=== PATIENT | female | born 1985 | race Two or more races ===

== ENCOUNTER 2020-03-07 15:06 | Outpatient (CLI) | payer BC, MEDICARE ==
[2020-03-07] MEDS ORDERED: RINGERS SOLUTION,LACTATED 1,000 ML IV PRN (15:37)
[2020-03-07] MEDS ORDERED: ACETAMINOPHEN 1,000 MG/100 ML RTUPB IV ONE (15:58)
[2020-03-07] MEDS ORDERED: ACETAMINOPHEN 1,000 MG/100 ML RTUPB IV SCH (16:00)
[2020-03-07 16:09] LABS: ABSOLUTE MONOCYTES (AUTO) 0.6 10^3/uL (0.1-1.4); ABSOLUTE NEUT (AUTO) 6.3 10^3/uL (1.7-8.2); BASOPHILS % (AUTO) 0.4 % (0-2); EOSINOPHILS % (AUTO) 0.5 % (0-6); HEMATOCRIT 26.3 % (36.0-47.0); HEMOGLOBIN 8.3 g/dL (12.0-15.5); LYMPHOCYTES % (AUTO) 22.5 % (13-45); MEAN CORPUSCULAR HEMOGLOBIN 22.1 pg (27.0-33.4); MEAN CORPUSCULAR HGB CONC 31.6 g/dL (32.0-36.0); MEAN CORPUSCULAR VOLUME 70 fl (80-97); MONOCYTES % (AUTO) 6.5 % (3-13); PLATELET COUNT 333 10^3/uL (150-450); RED BLOOD COUNT 3.77 10^6/uL (3.72-5.28); RED CELL DISTRIBUTION WIDTH 16.9 % (11.5-14.0); SEGMENTED NEUTROPHILS % (AUTO) 70.1 % (42-78); TOTAL CELLS COUNTED % (AUTO) 100 %
--- NOTE | 2020-03-07 16:13 | Non Stress Test Report ---
Non Stress Test Datetime Report Generated by CPN: 03/07/2020 16:12 DEMOGRAPHIC EGA NST: 32.6 VITAL SIGNS Temperature - NST: 97.3 Pulse - NST: 111 RESP - NST: 16 NBPSYS NST: 134 NBPDIA NST: 83 MONITORING Monitor Explained: Monitor Explained; Test Explained; Patient Verbalized Understanding Time on Monitor: 03/07/2020 15:21 Time off Monitor: 03/07/2020 15:53 NST Duration: 32 NST INTERVENTIONS NST Interventions: IV Fluids Physician Notified NST: A Hidalgo CNM BABY A: [id number] BABY A Movement : Present Contraction Frequency : none FHR Baseline : 130 Accelerations : 15X15 Decelerations : None Variability : Moderate 6-25bpm NST Review: Meets Criteria for Reactive NST NST Review and Verified By : Indu Camp RNC NST Results: Reactive NST REPORT Report Trigger: Send Report
[2020-03-07 16:27] LABS: ALBUMIN 3.2 g/dL (3.5-5.0); ALKALINE PHOSPHATASE 120 U/L (38-126); ANION GAP 6 (5-19); ASPARTATE AMINO TRANSFERASE 14 U/L (14-36); BILIRUBIN,DIRECT 0.2 mg/dL (0.0-0.4); BILIRUBIN,TOTAL 0.5 mg/dL (0.2-1.3); BLOOD UREA NITROGEN 3 mg/dL (7-20); CARBON DIOXIDE 23 mmol/L (22-30); CHLORIDE 105 mmol/L (98-107); GLUCOSE 115 mg/dL (75-110); POTASSIUM 3.4 mmol/L (3.6-5.0); TOTAL PROTEIN 6.2 g/dL (6.3-8.2); URIC ACID 3.5 mg/dL (2.5-6.2)
[2020-03-07 16:28] LABS: APPEARANCE,URINE SLIGHTLY-CLOUDY; BILIRUBIN,URINE NEGATIVE (NEGATIVE); COLOR,URINE YELLOW; GLUCOSE, URINE NEGATIVE (NEGATIVE); KETONES,URINE 20 mg/dL (NEGATIVE); LEUKOCYTE ESTERASE,URINE NEGATIVE (NEGATIVE); NITRITE,URINE NEGATIVE (NEGATIVE); PROTEIN,URINE 30 mg/dL (NEGATIVE); URINE SPECIFIC GRAVITY 1.018
[2020-03-07 16:42] LABS: UR PRO/CREAT RATIO RESULT 0.1 mg/mg (0.0-0.2); URINE CREATININE 157.6 mg/dL (16-327); URINE PROTEIN 20.8 mg/dL (<12)
[2020-03-07 16:53] LABS: URINE AMPHETAMINES SCREEN NEGATIVE; URINE BARBITURATES SCREEN NEGATIVE; URINE BENZODIAZEPINES SCREEN NEGATIVE; URINE COCAINE SCREEN NEGATIVE; URINE MARIJUANA (THC) SCREEN NEGATIVE; URINE METHADONE SCREEN NEGATIVE; URINE PHENCYCLIDINE SCREEN NEGATIVE
== END 2020-03-07 17:44 | disposition home or self-care (01) ==
LOC: LC 15:06
PROVIDERS: ATTEND Obstetrics & Gynecology Gynecology
DX: O10.913 Unspecified pre-existing hypertension complicating pregnancy, third trimester (principal); Z3A.32 32 weeks gestation of pregnancy
CPT/HCPCS: 59025; 36415; 83615; 84156; 84550; 82570; 85025; 80053; 81001; 80307; J0131

== ENCOUNTER 2020-03-17 00:12 | Emergency (ER) | payer BC ==
--- NOTE | 2020-03-17 00:31 | ER Document Report ---
ED Medical Screen (RME) - General Chief Complaint: Chest Pain Stated Complaint: CHEST PAIN Time Seen by Provider: 03/17/20 00:23 Primary Care Provider: DAVID MATHEWS MD [Primary Care Provider] - Follow up as needed Mode of Arrival: Ambulatory Information source: Patient - HPI Patient complains to provider of: DARIO LEE Notes: 03/17/20 00:30 Patient here with complaints of chest pain and shortness of breath. The patient is 34 weeks . Last time she was at the hospital she was told she was anemic with a hemoglobin of 8. Apparently her OB said her hemoglobin had dropped more and she is due to have an iron transfusion. States that today started having some chest pain or shortness of breath. Shortness of breath is exertional. She denies any recent long trips or surgeries or any significant leg swelling. No history of DVT or PE. Exam: No distress, nontoxic appearing. Lungs clear and equal throughout. Mild tachycardia. No significant peripheral edema. An initial examination was made on the patient as part of the triage process, and it was determined a more comprehensive evaluation was necessary. Initial orders were placed and patient was transferred to another provider in the ED who assumed care and finished evaluation and plan. - Related Data Allergies/Adverse Reactions: No Known Allergies Allergy (Unverified 03/07/20 15:16) Home Medications: Omeprazole. Aspirin. Labetalol. Nifedipine Physical Exam - Vital signs Vitals: Temp Pulse Resp BP Pulse Ox 97.6 F 109 H 16 141/90 H 99 03/17/20 00:18 03/17/20 00:18 03/17/20 00:18 03/17/20 00:18 03/17/20 00:18 Course - Vital Signs Vital signs: Temp Pulse Resp BP Pulse Ox 97.6 F 109 H 16 141/90 H 99 03/17/20 00:18 03/17/20 00:18 03/17/20 00:18 03/17/20 00:18 03/17/20 00:18 Doctor's Discharge - Discharge Referrals: DAVID MATHEWS MD [Primary Care Provider] - Follow up as needed
[2020-03-17 01:38] LABS: ABSOLUTE BASOPHILS # (AUTO) 0.2 10^3/uL (0.0-0.2); ABSOLUTE EOSINOPHILS # (AUTO) 0.1 10^3/uL (0.0-0.6); ABSOLUTE LYMPHOCYTES (AUTO) 2.1 10^3/uL (0.5-4.7); ABSOLUTE MONOCYTES (AUTO) 0.8 10^3/uL (0.1-1.4); ABSOLUTE NEUT (AUTO) 8.1 10^3/uL (1.7-8.2); BASOPHILS % (AUTO) 1.5 % (0-2); EOSINOPHILS % (AUTO) 0.4 % (0-6); HEMATOCRIT 28.1 % (36.0-47.0); HEMOGLOBIN 8.8 g/dL (12.0-15.5); LYMPHOCYTES % (AUTO) 18.6 % (13-45); MEAN CORPUSCULAR HEMOGLOBIN 21.8 pg (27.0-33.4); MEAN CORPUSCULAR HGB CONC 31.3 g/dL (32.0-36.0); MEAN CORPUSCULAR VOLUME 70 fl (80-97); MONOCYTES % (AUTO) 7.5 % (3-13); PLATELET COUNT 348 10^3/uL (150-450); RED BLOOD COUNT 4.04 10^6/uL (3.72-5.28); RED CELL DISTRIBUTION WIDTH 17.6 % (11.5-14.0); TOTAL CELLS COUNTED % (AUTO) 100 %; WHITE BLOOD COUNT 11.2 10^3/uL (4.0-10.5)
[2020-03-17 01:56] LABS: ALBUMIN 3.7 g/dL (3.5-5.0); ALKALINE PHOSPHATASE 137 U/L (38-126); ANION GAP 8 (5-19); ASPARTATE AMINO TRANSFERASE 23 U/L (14-36); BILIRUBIN,DIRECT 0.3 mg/dL (0.0-0.4); BILIRUBIN,TOTAL 0.5 mg/dL (0.2-1.3); BLOOD UREA NITROGEN 6 mg/dL (7-20); CALCIUM 9.4 mg/dL (8.4-10.2); CARBON DIOXIDE 22 mmol/L (22-30); CHLORIDE 106 mmol/L (98-107); GLUCOSE 111 mg/dL (75-110); POTASSIUM 3.2 mmol/L (3.6-5.0); TOTAL PROTEIN 7.5 g/dL (6.3-8.2)
[2020-03-17 02:07] LABS: NT PRO BNP 93 pg/mL (<125)
[2020-03-17 02:08] LABS: TROPONIN I < 0.012 ng/mL
--- NOTE | 2020-03-17 02:11 | RADIOLOGY REPORT (SQ) ---
CHEST X-RAY 1 VIEW on 03/17/2020 at 1:47 AM CLINICAL INDICATION: Chest pain, shortness of breath, 34 weeks COMPARISON: None FINDINGS: Heart is borderline in size. The lungs are clear. Hilar and mediastinal contours are within normal limits. Pulmonary vascularity is within normal limits. IMPRESSION: No acute disease.
[2020-03-17] MEDS: NORMAL SALINE 1000 ML 1,000 ML IV PRN ×2 (02:21→03:27)
--- NOTE | 2020-03-17 02:32 | ER Document Report ---
Entered by NADINE OROZCO SCRIBE 03/17/20 0216 Acting as scribe for:VICKIE MCCALLUM IV, MD ED General - General Chief Complaint: Chest Pain Stated Complaint: CHEST PAIN Time Seen by Provider: 03/17/20 00:23 Primary Care Provider: DAVID MATHEWS MD [Primary Care Provider] - Follow up as needed Mode of Arrival: Ambulatory Information source: Patient Notes: This 34-year-old female patient presents to the emergency departme today with complaints of an "uncomfortable sensation" in her chest that she further describes as a heart racing sensation. Patient reports that she is due for an iron infusion on Tuesday as her hemoglobin was 8.3 during outpatient labs last week. She has no abdominal pain or vaginal bleeding. - Related Data Allergies/Adverse Reactions: No Known Allergies Allergy (Unverified 03/07/20 15:16) Home Medications: Omeprazole. Aspirin. Labetalol. Nifedipine Past Medical History - General Information source: Patient - Social History Smoking Status: Never Smoker Cigarette use (# per day): No Frequency of alcohol use: None Drug Abuse: None Lives with: Family Family History: Reviewed & Not Pertinent - Past Medical History Cardiac Medical History: Reports: Hx Hypertension Past Surgical History: Reports: Hx Section - x2 Review of Systems - Review of Systems Constitutional: No symptoms reported EENT: No symptoms reported Cardiovascular: See HPI, Palpitations, Heart racing Respiratory: No symptoms reported Gastrointestinal: No symptoms reported Genitourinary: No symptoms reported Female Genitourinary: No symptoms reported Musculoskeletal: No symptoms reported Skin: No symptoms reported Hematologic/Lymphatic: No symptoms reported Neurological/Psychological: No symptoms reported -: Yes All other systems reviewed and negative Physical Exam - Vital signs Vitals: Temp Pulse Resp BP Pulse Ox 97.6 F 109 H 16 141/90 H 99 03/17/20 00:18 03/17/20 00:18 03/17/20 00:18 03/17/20 00:03/17/20 00:18 - Notes Notes: Physical Exam: General: Alert, appears well. HEENT: Normocephalic. Atraumatic. PERRL. Extraocular movements intact. Orophary nx clear. Neck: Supple. Non-tender. Respiratory: No respiratory distress. Clear and equal breath sounds bilaterally. Cardiovascular: Resting heart rate is around 100, when stood up her heart rate jumps to 145. Abdominal: Gravid female. Non-tender. No distension. Normal Bowel Sounds. Back: No gross abnormalities. Extremities: Moves all four extremities. Upper extremities: Normal inspection. Normal ROM. Lower extremities: Normal inspection. No edema. Normal ROM. Neurological: Normal cognition. AAOx4. Normal speech. Psychological: Normal affect. Normal Mood. Skin: Warm. Dry. Normal color. Course - Re-evaluation Re-evalutation: 03/17/20 02:22 Differential diagnosis: Chest wall pain, symptomatic anemia, dehydration, electrolyte abnormality, discomfort of MDM: Given that the patient's pulse goes from basically 90 up to 140 when she changes from a supine to a standing position, I am inclined to think that the most likely diagnosis is dehydration versus postural orthostatic tachycardia sy ndrome versus simply orthostatic hypotension with reflexive tachycardia. Patient's hemoglobin is slightly improved compared to her last 1; her hemoglobin is 8.6 today versus 8.310 days ago. Patient denies any type of active bleeding. I think the most appropriate treatment would be to give the patient a couple liters of fluid IV and have her follow-up with Dr. Mathews on 03/19/2020 as scheduled for her iron infusion. Results of ED MSE discussed with patient. All questions were answered prior to discharge. Emergency signs and symptoms, reasons to return to the emergency department discussed with patient. - Vital Signs Vital signs: Temp Pulse Resp BP Pulse Ox 97.6 F 109 H 16 141/90 H 99 03/17/20 00:18 03/17/20 00:18 03/17/20 00:18 03/17/20 00:18 03/17/20 00:18 - Laboratory Results Result Diagrams: 03/17/20 01:21 03/17/20 01:21 Laboratory Results Interpreted: 03/17/20 03/17/20 01:21 01:21 WBC 11.2 H Hgb 8.8 L Hct 28.1 L MCV 70 L MCH 21.8 L MCHC 31.3 L RDW 17.6 H Sodium 136.4 L Potassium 3.2 L BUN 6 L Creatinine 0.45 L Glucose 111 H Alkaline Phosphatase 137 H Critical Laboratory Results Reviewed: No Critical Results Attending or Supervising Physician who Reviewed Labs: VICKIE MCCALLUM IV - Radiology Results Critical Radiology Results Reviewed: No Critical Results Attending or Supervising Physician who Reviewed Radiology: VICKIE MCCALLUM IV - EKG Interpretation by Me Additional EKG results interpreted by me: 03/17/20 02:27 EKG obtained on 03/17/2020 at 00 39 hours was interpreted by this MD. Findings: Normal sinus rhythm, rate 97, normal axis, MT interval appears to be within normal limits, P waves preceding QRS complexes, QRS complex appears narrow, QTC is 447, there are no obvious patterns of ST segment elevation, depression or reciprocal changes seen to suggest acute myocardial ischemia or infarction. There is no prior EKG readily available for comparison. Impression: Normal sinus rhythm with nonspecific ST segments. Discharge - Discharge Clinical Impression: Dehydration, Reflex tachycardia Condition: Stable Disposition: HOME, SELF-CARE Additional Instructions: Return to the Emergency Department without delay if any worse. HOME CARE INSTRUCTIONS & INFORMATION: Thank you for choosing us for your medical needs. We hope you're satisfied with the care you received. After you leave, you must properly care for your problem and, at the same time, observe it s progress. Any condition can change. Some illnesses can change rapidly over hours or days. If your condition worsens, return to the Emergency Department or see your physician promptly. ABOUT YOUR X-RAYS AND EKG'S: If you had an EKG or X-rays taken, they have been read by the Emergency Physician. The X-rays and EKG's will also be read by a Radiologist or Personnel Coordinator within 24 hours. If discrepancies are noted, you will be notified by telephone. Please be certain the ED has a correct telephone number & address where you can be reached. Also, realize that some fractures or abnormalities do not show up on initial X-rays. If your symptoms continue, see your physician. ABOUT YOUR LABORATORY TEST: If you had laboratory tests, the results have been reviewed by the Emergency Physician. Some test results (for example cultures) may not be available for several days. You will be contacted if any test result shows you need additional treatment. Please be certain the ED has a correct telephone number and address where you can be reached. ABOUT YOUR MEDICATIONS: You will receive instructions on how to take your medicine on the prescription label you receive. Additional information may be provided by the Pharmacy. If you have questions afterwards, call the ED for clarification or further instructions. Some prescribed medications may cause drowsiness. Do not perform tasks such as driving a car or operating machinery without consulting your Pharmacist. If you feel you need a refill of pain medication, your condition will need re-evaluation. Please do not call for a refill of any medication. ABOUT YOUR SIGNATURE: Signature of this document acknowledges to followin. Understanding that you received emergency treatment and that you may be released before al medical problems are known or treated. Please be certain the ED has a correct phone number & address where you can be reached. 2. Acknowledgement that you will arrange for follow-up care as recommended. 3. Authorization for the Emergency Physician to provide information to your follow-up Physician in order to maximize your care. AT ANY TIME, IF YOUR SYMPTOMS CHANGE SIGNIFICANTLY OR WORSEN OR YOU DEVELOP NEW SYMPTOMS, RETURN TO THE EMERGENCY DEPARTMENT IMMEDIATELY FOR RE-EVALUATION. OUR GOAL IS TO PROVIDE EXCELLENT MEDICAL CARE! WE HOPE THAT WE HAVE MET YOUR EXPECTATIONS DURING YOUR EMERGENCY DEPARTMENT VISIT AND THAT YOU FEEL YOU HAVE RECEIVED EXCELLENT CARE! Dehydration Dehydration can result from vomiting or diarrhea, fever, or decreased intake of fluids. If severe, hospitalization and intravenous fluids may be required. Most cases are treated at home with fluids by mouth. For the next 24 hours, drink lots of clear fluids. In mild cases, this can be soda pop or sports drinks. For more severe dehydration, the doctor may recommend special fluids such as Pedialyte or Lytren. Try to get three liters (3 quarts) of fluid per day. If vomiting occurs, continue to drink the fluids frequently (every 15 to 20 minutes), but in small amounts (one or two ounces). Depending on the type of dehydration, the doctor may prescribe antinausea medicine or potassium replacements. Call the doctor or return for re-examination if you become progressively weak, vomit repeatedly, or have other new symptoms. Referrals: DAVID MATHEWS MD [Primary Care Provider] - 03/19/20 I personally performed the services described in the documentation, reviewed and edited the documentation which was dictated to the scribe in my presence, and it accurately records my words and actions.
[2020-03-17 02:34] LABS: APPEARANCE,URINE SLIGHTLY-CLOUDY; BILIRUBIN,URINE NEGATIVE (NEGATIVE); COLOR,URINE YELLOW; GLUCOSE, URINE NEGATIVE (NEGATIVE); KETONES,URINE NEGATIVE (NEGATIVE); LEUKOCYTE ESTERASE,URINE TRACE (NEGATIVE); NITRITE,URINE NEGATIVE (NEGATIVE); PROTEIN,URINE NEGATIVE (NEGATIVE); URINE SPECIFIC GRAVITY 1.011
[2020-03-17 03:48] VITALS: BP 136/98
--- NOTE | 2020-03-17 07:42 | EKG REPORT ---
SEVERITY:- ABNORMAL ECG - SINUS RHYTHM CONSIDER LEFT VENTRICULAR HYPERTROPHY : Confirmed by: Chau Goff MD 17-Mar-2020 07:41:17
[2020-03-19 16:40] LABS: ABSOLUTE RETICS # 0.092 10^6/uL (0.028-0.122); RETICULOCYTE COUNT (AUTO) 2.35 % (0.66-2.85)
[2020-03-19 17:11] LABS: FERRITIN 7.94 ng/mL (6.2-137.0)
[2020-03-19 18:02] LABS: IRON(TIBC) 147.4 ug/dL (37-170)
== END 2020-03-17 03:47 | disposition home or self-care (01) ==
LOC: ER 00:12
DX: O99.283 Endocrine, nutritional and metabolic diseases complicating pregnancy, third trimester (principal); E86.0 Dehydration; O26.893 Other specified pregnancy related conditions, third trimester; R00.0 Tachycardia, unspecified; R07.9 Chest pain, unspecified; R00.2 Palpitations; O99.013 Anemia complicating pregnancy, third trimester; D64.9 Anemia, unspecified; O16.3 Unspecified maternal hypertension, third trimester; Z79.899 Other long term (current) drug therapy; Z79.82 Long term (current) use of aspirin; Z3A.34 34 weeks gestation of pregnancy
CPT/HCPCS: 93005; 99285; 96360; 86900; 86901; 36415; 86850; 85025; 80053; 81001; 84484; 83880; 71045; 93010; J7030; 82607; 82728; 82746; 83540; 83550; 85045